=== PATIENT | male | born 1985 ===

== ENCOUNTER 2017-09-25 08:22 | Day surgery (SDC) | payer OTHER ==
[~2017-09-25 08:22] MED LIST: Acetaminophen TAB* 325 MG PO ONE; Buffered Lidocaine 0.9% SYRIN* 5 ML/SYR SYRINGE INTRADERM ONE; Famotidine TAB* 20 MG PO ONE; Gabapentin CAP(*) 300 MG PO ONE; Metoclopramide TAB* 10 MG PO ONE; celeCOXIB CAP* 200 MG PO ONE
[2017-09-25] MEDS ORDERED: Acetaminophen TAB* 325 MG ONE (08:50)
[2017-09-25] MEDS ORDERED: Famotidine TAB* 20 MG ONE (08:50)
[2017-09-25] MEDS ORDERED: celeCOXIB CAP* 100 MG ONE (08:50)
[2017-09-25] MEDS ORDERED: Gabapentin CAP(*) 300 MG ONE (08:50)
[2017-09-25] MEDS ORDERED: Metoclopramide TAB* 10 MG ONE (08:51)
[2017-09-25] MEDS ORDERED: ceFAZolin 2 GM PREMIX (*) 2 GM/50 ML BAG IVPB ONE ×2 (08:51→15:30)
[2017-09-25] MEDS ORDERED: fentaNYL* 50 MCG/ML 5 ML VIAL (250 MCG VIAL) ONE ×2 (09:29→14:35)
[2017-09-25] MEDS ORDERED: Lidocaine 2% PF * 5 ML VIAL ONE (09:29)
[2017-09-25] MEDS ORDERED: KETAMINE HCL* 50 MG/ML 10 ML VIAL ONE (09:29)
[2017-09-25] MEDS ORDERED: Dexamethasone IV* 4 MG/ML 1 ML (4 MG) ONE (09:29)
[2017-09-25] MEDS ORDERED: ROPIVACAINE 5 MG/ML 30 ML BTL (0.5%) ONE (09:29)
[2017-09-25] MEDS ORDERED: Ketorolac INJ* 30 MG/ML 1 ML VIAL ONE (09:29)
[2017-09-25] MEDS ORDERED: Propofol* 10 MG/ML 20 ML BTL IV PUSH ONE ×2 (09:29→11:44)
[2017-09-25] MEDS ORDERED: Rocuronium* 10 MG/ML VIAL ONE (09:29)
[2017-09-25] MEDS ORDERED: Midazolam* 1 MG/ML 10 ML VIAL (10 MG) ONE (09:30)
[2017-09-25] MEDS ORDERED: Bupivacaine 0.5% PF 10 ML VIAL INJ ONE (10:25)
[2017-09-25] MEDS ORDERED: methylPREDNISolone ACETATE 80* 80 MG/ML 1 ML VIAL ONE (10:25)
[2017-09-25] MEDS ORDERED: Bupivacaine 0.25% SDV* 30 ML ONE (11:06)
[2017-09-25] MEDS ORDERED: Lidocaine 1% INJ* 10 MG/ML 30 ML SDV ONE (11:06)
[2017-09-25] MEDS ORDERED: Metoprolol Tartrate IV* 1 MG/ML 5 ML VIAL ONE (11:44)
[2017-09-25] MEDS ORDERED: Naloxone* 0.4 MG/ML 1 ML VIAL IV PRN (12:26)
[2017-09-25] MEDS ORDERED: oxyCODONE TAB* 5 MG TAB PO PRN (12:26)
[2017-09-25] MEDS ORDERED: Ondansetron INJ* 2 MG/ML VIAL IV PRN (12:26)
[2017-09-25] MEDS ORDERED: HYDROmorphone INJ* 1 MG/ML CARPUJECT SYRINGE IV PRN (12:26)
[2017-09-25] MEDS ORDERED: fentaNYL* 50 MCG/ML 2 ML VIAL (100 MCG VIAL) IV PRN (12:26)
[2017-09-25] MEDS ORDERED: DiMENhydriNATE IV* 50 MG/ML VIAL ONE (15:00)
--- NOTE | 2017-09-25 16:53 | RAD ---
Indication: Right shoulder surgery. 5 views of the right shoulder are reviewed. There is been revision of the previously identified surgical clips in the inferior glenoid labrum. Degenerative changes of the glenohumeral joint is noted. Mild AC joint arthritis is noted. IMPRESSION: Revision of prior surgery to the glenoid. Alignment appears satisfactory. Postoperative changes are present.
[2017-09-25] MEDS ORDERED: oxyCODONE TAB* 5 MG TAB ONE (17:11)
[2017-09-25 17:27] VITALS: BP 150/100
--- NOTE | 2017-09-27 22:27 | OP ---
DATE OF OPERATION: 09/25/17 [facility] DATE OF : 81 SURGEON: Ryan Fallon MD [employer] CONSULTANT: [place] Irvin. A physician lpn or medical assistant was required for the length of the procedure for positioning, retraction, assistance with closure. ANESTHESIOLOGIST: Ever Carrasco MD ANESTHESIA: General anesthesia, interscalene block regional anesthesia. PREOPERATIVE DIAGNOSES: 1. Right shoulder and glenohumeral joint instability, anterior, recurrent. 2. Status post right shoulder open anterior labral repair by an outside surgeon in approximately 2001. 3. Mild right shoulder glenohumeral joint osteoarthritis. POSTOPERATIVE DIAGNOSES: 1. Right shoulder and glenohumeral joint instability, anterior, recurrent. 2. Status post right shoulder open anterior labral repair by an outside surgeon in approximately 2001. 3. Mild right shoulder glenohumeral joint osteoarthritis. OPERATIVE PROCEDURE: Right shoulder open coracoid transfer with anterior capsule repair, the Latarjet procedure. ANTIBIOTICS: 2 g Ancef IV about the start of the procedure. IV FLUIDS: 2400 cc crystalloid. NDOD-BQ-XNTW TIME: 214 minutes. SPECIMEN: Several sutures, permanent, removed from a prior surgical procedure. IMPLANTS: Arthrex cannulated partially threaded screws, 3.8 mm, with a length of 34 mm and 36 mm. COMPLICATIONS: None. ESTIMATED BLOOD LOSS: 200 cc. RADIATION: No x-rays were taken during the case. INDICATIONS FOR PROCEDURE: The patient is a 32-year-old man, right hand dominant, a prisoner, who had a right shoulder injury while playing football in approximately 2001. The patient underwent an anterior labral repair, open, performed by Dr. Quiñones at [facility]. The patient then had no difficulties with his shoulder from 2001 to 2008. From 2008 over the last 9 years to 2018, the patient has had a very high number of dislocations. The patient believes his number is higher than 100. At one point, he was dislocating 2 to 3 times a day. The patient has been dislocated while in bed, clearly without any contact and multiple dislocation events. The patient was initially scheduled for a coracoid transfer procedure elsewhere , but then switched prisons. Our surgical planning was delayed once because the patient switched prisons again. I evaluated an MRI and a CT scan of the patient's right shoulder. The patient responded insufficiently to nonoperative management. See my history and physical for full details. While the patient clearly had some loss of articular cartilage in the right shoulder, at least mild glenohumeral joint arthritis, he has full range of motion in that right shoulder on exam and I certainly confirmed on exam with the patient's very positive anti-apprehension test that he is actually dislocating his shoulder as per his history. Preoperatively, we talked about the patient's highly likelihood of needing a total shoulder arthroplasty at some point in the future given his young age and the arthritis already present in his shoulder and given the significant number, volume of dislocations in the past. He understood this and acknowledged it. We discussed the coracoid transfer procedure at length. Discussed risks and potential complications, including bleeding, infection, nerve or blood vessel injury, shoulder pain, stiffness, osteoarthritis, hardware complications, need for revision surgery, need for shoulder arthroplasty. DESCRIPTION OF PROCEDURE: In preoperative holding, the patient signed a surgical consent. The operative extremity was marked in preoperative holding. The patient was taken back to the operating room and placed supine on the operating room table. The patient had an interscalene block by Dr. Carrasco. General anesthesia was also applied. A head extension had been placed on the surgical table. The patient was sedated, intubated and then translated in the bed. We then converted the patient into a beach chair position. This was a modified beach chair with the head of the bed only elevated perhaps 30 degrees. Both axillae were free. The right shoulder was resting comfortably against the back rest, radiolucent. Head and neck were in a neutral position. The right upper extremity was prepped and then draped. Surgical time-out was performed. I made a skin incision from just proximal to the coracoid process angling distal and lateral, more a classic approach for shoulder arthroplasty than for coracoid transfer knowing that the patient would likely be using this plane at some point in the future. I incised the skin. I dissected down to the deltopectoral groove. I identified it. Vein cephalic was present. Cephalic vein was retracted laterally with the deltoid. I opened up the interval between the deltoid and the pectoral major muscle. There was clearly evidence of some scar tissue through this plane, as a result of prior surgery. I freed up some adhesions subdeltoid with my fingers as well as adhesions subacromial. Coracoid process was visualized as was the conjoint tendon. I removed some deltopectoral fascia overlying the subscapularis. A Kolbel retractor was placed deep to the deltoid and the pectoralis muscle. A pointed Hohmann was placed about the coracoid process. I next performed the resection of coracoid process. I released the coracoacromial ligament with a nice leash of tissue attached to the coracoid. I next released the pec minor. I dissected safely inferior to the coracoid process from medial and then from lateral. Released some of the coracohumeral ligament. I measured the coracoid process to be at least 2 cm to the elbow, which made me happy. I next used an oscillating saw with a 90 degree bend in it to cut the coracoid off its base near the elbow and to the scapula. I completed the last bit of that with an osteotome. I pulled the conjoint tendon somewhat from the wound. I released the remainder of the coracohumeral ligament. I carefully dissected some tissue between the conjoint tendon and the pectoralis minor muscle, allowing for improved mobilization of the coracoid process. This mobilized it. I also debrided some soft tissue adhesions more laterally. Musculocutaneous nerve was not visualized, but was certainly looked carefully for. It must have inserted into the conjoint tendon more distally than I was evaluating. We next pushed the coracoid off to the side medially and dissected down to the glenoid. I evaluated the subscapularis tendon and muscle. I, after clearing off the clavipectoral fascia, had a perfect view of the superior and inferior border of the subscapularis muscle. I identified a point in the muscle proximally 60% of the way from superior to inferior. I used scissors to split the muscle and tendon in that location. While there was certainly some scar tissue here, there was a discrete anterior capsule deep to the subscapularis muscle. It was more than typically adherent to the undersurface of the subscapularis, given the patient's prior surgery. I continued the split all the way to bone, the lesser tuberosity laterally. I inserted a sponge deep to the subscapularis to open up the plane between subscapularis and anterior capsule. I had removed the Kolbel by this point. Retractors were placed deep to the subscapularis. Prior to my viewing the glenoid, I had to perform a vertical capsular cut. I determined the level of the glenohumeral joint by palpation and with the spinal needle. In that location, I performed a vertical cut of the anterior capsule. After performing that cut, I was able to visualize the anteroinferior glenoid rim. I debrided on bone from the glenoid rim medially. I then placed my anterior glenoid retractor directly on bone. I next placed a pin into the scapula just medial to the glenoid and bent it up, retracting subscapularis muscle superiorly. With the anterior glenoid retractor, Fukuda retractor, my pin superiorly and Santos retractors, narrow, superior and inferior, I had a reasonable view. I could visualize better the anteroinferior glenoid rim. There is some calcification off it. I debrided this. I removed labrum. I debrided calcification, soft tissue, and bone. There was a very flat surface of the anteroinferior glenoid as had been appreciated on preoperative CT. I used a round tip sunita to debride the bony surface to improve future healing. I next returned to my coracoid. I had noted when I harvested that there was a significant curve to the under surface. I did not want to remove that until I confirmed the flatness of the anteroinferior glenoid. I next went about molding the coracoid tip. I flattened off out the inferior surface of the coracoid as I planned on performing a classic technique rather than a congruent arc technique. I roughened up the bone on the surface of the coracoid, with an oscillating saw. I next confirmed that the coracoid process fragment would fit nicely to the anteroinferior glenoid. I had been deciding between Synthes partially threaded noncannulated screws and using the Arthrex system and its cannulated screws. Ultimately for ease of insertion, I used the Arthrex system. I returned to my coracoid tip. I chose the widest guide, 8-mm offset and I drilled 4-mm holes, two of them in the coracoid process tip. I made these holes slightly eccentric so that I would intentionally medialize the coracoid process at least 1 to 2 mm, so as to avoid any chance of the bone block or the screw heads being proud postoperatively. I returned to the glenoid. I placed my bone block in place. I placed pins across the coracoid process tip and the glenoid. I then drilled through the coracoid at least unicortically if not bi-cortically through the glenoid. This was a smaller caliper drill. Based on my preoperative measurements and known anatomy of the glenoid, I picked screws that were 36 and 34 mm long, the 34-mm long screw being more inferior. I placed these screws. A bite was excellent into the bone. Bone block to glenoid fit was excellent. A small medialization of bone block was evident. Irrigation. Closure of the anterior capsule to the coracoacromial ligament was performed with 3 [id number] stitches with a non-absorbable #2 suture. A pin was removed from the glenoid. Split in subscapularis was left open more medially. More laterally in the tendinous component of the subscapularis, I placed 3 to 4 [id number] stitches between the inferior and superior leaflets of the subscapularis. I brought the patient into the position of anterior apprehension and the glenohumeral joint was nicely stable. Irrigation. Closure of the deltopectoral inferior wall with a running stitch using Ethibond 0 suture. Irrigation. Closure of the subcutaneous tissue with buried simple stitches using Vicryl 2-0 suture. Closure of the skin with samaria. It should be mentioned that bone wax had been placed at the harvest site of the coracoid to minimize bleeding early in the operation. On the surgical incision, Xeroform was placed, then 4x4s, then ABD, then a foam tape. The patient's right shoulder was placed in a sling with a cooling unit. The patient was extubated and transferred to the PACU. The patient was to get a second dose of IV antibiotics given the length of the procedure. DISPOSITION: In the PACU, the patient had x-rays obtained, and AP, Grashey, and axillary, lateral view of the right shoulder which showed excellent position of hardware. The patient will follow up with me in approximately 2 weeks post-operative. He is to take Percocet as needed for pain control, Keflex t.i.d. x7 days postoperative for infection prophylaxis and aspirin for DVT prophylaxis. He is to be in a sling at all times. We will hold off on physical therapy until after his first clinic visit with me. No abduction pillow was needed because I would like the patient to internally rotate that shoulder preferentially, in the sling. [id number] #: [id number]
== END 2017-09-25 17:39 ==
LOC: OR 08:22
PROVIDERS: ATTEND Orthopaedic Surgery
DX: M25.311 Other instability, right shoulder (principal); M19.111 Post-traumatic osteoarthritis, right shoulder; F17.210 Nicotine dependence, cigarettes, uncomplicated; I49.3 Ventricular premature depolarization
CPT/HCPCS: 36415; 86703; A9270-GY; C1713; C1776; J0690; J1040; J1100; J1240; J1885; J2250; J2704; J2795; J3010; J3490